=== PATIENT | male | born 1955 | race Caucasian/White ===

== ENCOUNTER 2024-10-20 07:10 | Day surgery (SDC) | payer OTHER ==
[2024-10-20] VITALS (10 sets, daily range): BP systolic 100–112; BP diastolic 52–66; PULSE 78–92; RESP 16–18; TEMP 97.3–97.8
[~2024-10-20] VITALS: Ht 177.8 cm; Wt 124.7 kg
[2024-10-20] MEDS ORDERED: METO-296 PO (08:15)
[2024-10-20] MEDS ORDERED: PRED5TAB PO (08:15)
[2024-10-20] MEDS ORDERED: ATOR10 PO (08:15)
[2024-10-20] MEDS ORDERED: HYDROCODONE-ACETAMIN PO (08:15)
[2024-10-20] MEDS ORDERED: ALPR0.5T8 PO (08:15)
[2024-10-20] MEDS ORDERED: SERT-440 PO (08:15)
[2024-10-20] MEDS ORDERED: PANT40TA54 PO (08:15)
[2024-10-20] MEDS ORDERED: HYDR200T75 PO (08:15)
[2024-10-20] MEDS ORDERED: LIDOCAINE HCL 1% 20 ML VIAL ONE (08:55)
[2024-10-20] MEDS ORDERED: 0.9%NACL 1000ML 1,000 ML IV ONE (09:39)
--- NOTE | 2024-10-20 10:52 | NUR ---
[facility] arrived at this time for pt.
== END 2024-10-20 10:55 | disposition home or self-care (01) ==
LOC: DAH 07:10
PROVIDERS: ATTEND Internal Medicine Gastroenterology
DX: R10.13 Epigastric pain (principal); K29.50 Unspecified chronic gastritis without bleeding; K26.3 Acute duodenal ulcer without hemorrhage or perforation; K21.00 Gastro-esophageal reflux disease with esophagitis, without bleeding; K21.9 Gastro-esophageal reflux disease without esophagitis; K22.89 Other specified disease of esophagus; Z79.899 Other long term (current) drug therapy; Z98.890 Other specified postprocedural states
CPT/HCPCS: 43239; J7030; J2704; A4620; A4215; A4223; A7002; A4222; A4221; A4663; A4606; J3490

== ENCOUNTER 2024-11-01 17:54 | Emergency (ER) | payer OTHER ==
[~2024-11-01] VITALS: Ht 177.8 cm; Wt 113.4 kg
[~2024-11-01 17:54] MED LIST: ALPR0.5T8 PO; ATOR10 PO; HYDR200T75 PO; HYDROCODONE-ACETAMIN PO; METO-296 PO; PANT40TA54 PO; PRED5TAB PO; SERT-440 PO
--- NOTE | 2024-11-01 18:21 | ERN ---
ED Note History of Present Illness Stated Complaint: EPIGASTRIC PAIN Chief Complaint: Abdominal Pain Time Seen by MD: 18:08 Time Seen by Midlevel: 18:09 Dictation: 69-year-old male who presents to the emergency department per EMS due to reported having epigastric pain that has been going off and on for the past week. 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 Patient states that the pain pretty much subsided but it worsens when he eats the incarceration food or takes his medications. The discomfort is described as being an achy type of sensation. However, he reports having some nausea and vomiting since last night. The patient states that he has had 3 episodes of vomiting since last night eyes. He denies having any fever or chills. Patient states that he also suffers for constipation with his last bowel movement being 4 days ago. Upon initial evaluation, the patient presents in no acute distress. 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 Home Meds Reported Medications Sertraline HCl (Sertraline HCl) 100 Mg Tablet, 1.5 TAB PO DAILY for 30 Days, #30 TAB 0 Refills 10/20/24 [Hydrocodone-Acetamin] No Conflict Check, 10-325 MG PO Q6HPRN 10/20/24 Prednisone (Prednisone) 5 Mg Tablet, 3 TAB PO DAILY for 30 Days, #30 TAB 0 Refills 10/20/24 Atorvastatin Calcium (LIPITOR) 10 Mg Tab, 1 TAB PO DAILY for 30 Days, #30 TAB 0 Refills 10/20/24 Alprazolam (Alprazolam) 0.5 Mg Tablet, 1 TAB PO HS for 30 Days, #60 TAB 0 Refills 10/20/24 Pantoprazole Sodium (Pantoprazole Sodium) 40 Mg Tablet.dr, 1 TAB PO BID for 30 Days, #30 TAB 0 Refills 10/20/24 Hydroxychloroquine Sulfate (Hydroxychloroquine Sulfate) 200 Mg Tablet, 1 TAB PO AM for 30 Days, #60 TAB 0 Refills 10/20/24 Metoclopramide HCl (Reglan) 10 Mg Tablet, 1 TAB PO QID for 30 Days, #120 TAB 0 Refills before food and bedtime 10/20/24 Past Medical History Past Medical History: Other Surgical History: Other RN Note Reviewed/Agreed w/PFSH: Yes Review of System Dictation Abdomen/GI: Epigastric pain, nausea, vomiting Initial Vital Sign VS Vital Signs Date Time Temp Pulse Resp B/P (MAP) Pulse Ox O2 Delivery O2 Flow Rate FiO2 11/01/24 17:57 98.8 98 20 152/87 97 Room Air 0 11/01/24 18:43 21 Physical Exam Dictation General: awake, alert, NAD Head/Face: Normocephalic, atraumatic Eyes: PERRL, EOMI ENT: Oral mucosa moist Neck: Trachea midline, supple Cardiovascular: RRR, no edema Respiratory: Symmetrical, non-labored Abdomen: Soft, epigastric tenderness with voluntary guarding, non-distended, no guarding. Skin: Warm, dry, good turgor, no rash MS/Extremity: Pulses equal, no cyanosis, neurovascular intact, FROM Neuro: COAx4, GCS 15, steady gait, Psych: Normal behavior, mood, and affect normal Results (Laboratory/Radiology) Laboratory/Radiology Laboratory Tests Test 11/01/24 18:34 11/01/24 20:50 White Blood Count 8.3 K/uL (4.8-10.8) Red Blood Count 4.01 MIL/uL (4.50-6.20) L Hemoglobin 11.7 g/dL (14.0-18.0) L Hematocrit 35.7 % (42-54) L Mean Corpuscular Volume 89.0 fL (79-99) Mean Corpuscular Hemoglobin 29.2 pg (27.0-33.0) Mean Corpuscular Hemoglobin Concent 32.8 g/dL (32.0-36.0) Red Cell Distribution Width 15.7 % (11.0-15.5) H Platelet Count 190 K/uL (130-400) Mean Platelet Volume 10.5 fL (7.5-10.5) Immature Granulocyte % (Auto) 0.4 % (0-1) Neutrophils (%) (Auto) 72.5 % (40.0-77.0) Lymphocytes (%) (Auto) 18.2 % (21.0-51.0) L Monocytes (%) (Auto) 6.7 % (3.0-13.0) Eosinophils (%) (Auto) 1.8 % (0.0-8.0) Basophils (%) (Auto) 0.4 % (0.0-5.0) Neutrophils # (Auto) 6.0 K/uL (1.8-7.7) Lymphocytes # (Auto) 1.5 K/uL (1.0-4.8) Monocytes # (Auto) 0.6 K/uL (0.1-1.0) Eosinophils # (Auto) 0.15 K/uL (0.00-0.70) Basophils # (Auto) 0.03 K/uL (0.00-0.20) Absolute Immature Granulocyte (auto 0.03 K/uL (0-1) Nucleated Red Blood Cells 0.0 % (0.0-0.19) Sodium Level 138 mmol/L (136-145) Potassium Level 5.3 mmol/L (3.5-5.1) H Chloride Level 103 mmol/L (101-111) Carbon Dioxide Level 28 mmol/L (21-32) Blood Urea Nitrogen 6 mg/dL (7-18) L Creatinine 0.7 mg/dL (0.5-1.3) Glomerular Filtration Rate Calc 100 mL/min (>90) Random Glucose 67 mg/dL (70-105) L Total Calcium 8.1 mg/dL (8.5-10.1) L Total Bilirubin 0.7 mg/dL (0.2-1.0) Aspartate Amino Transf (AST/SGOT) 45 U/L (10-37) H Alanine Aminotransferase (ALT/SGPT) 27 U/L (12-78) Alkaline Phosphatase 69 U/L (50-136) Troponin I High Sensitivity 28 ng/L (4-75) Total Protein 5.8 g/dL (6.0-8.3) L Albumin 2.0 g/dL (3.5-5.0) L Lipase 22 U/L (16-77) Urine Color YELLOW (YELLOW) Urine Appearance CLEAR (CLEAR) Urine pH 6.0 (5.0-8.0) Urine Specific [place] 1.018 (1.001-1.031) Urine Protein 20 mg/dL (NEGATIVE) H Urine Glucose (UA) NEGATIVE mg/dL (NEGATIVE) Urine Ketones 40 mg/dL (NEGATIVE) H Urine Occult Blood +- (TRACE) (NEGATIVE) H Urine Nitrate NEGATIVE (NEGATIVE) Urine Bilirubin NEGATIVE mg/dL (NEGATIVE) Urine Urobilinogen 0.2 mg/dL (0.2-1.0) Urine Leukocyte Esterase NEGATIVE John/uL Urine RBC 6-10 /HPF (0-1) H Urine WBC 2-5 /HPF (0-1) H Urine Squamous Epithelial Cells RARE /HPF (0-2) Urine Bacteria None /HPF (None Seen) Labs Reviewed?: Yes EKG: (+) NSR EKG Comment: EKG done 11/01/2024 at 6:16 p.m.. Ventricular rate 88 beats per minute MT 130 MS QRS 87 MS QT [address]I. CT Scan Comment: CT abdomen/pelvis with no particular findings. ED Course ED Course Orders Procedure Category Date Status Time Troponin I High LAB 11/01/24 Complete Sensitivity 18:14 Cbc With Differential LAB 11/01/24 Complete 18:14 Comprehensive LAB 11/01/24 Complete Metabolic Panel 18:14 Urinalysis Profile LAB 11/01/24 Complete 18:14 12 Lead Ekg Tracing- EKG 11/01/24 Logged Technical 18:14 Lipase LAB 11/01/24 Complete 18:14 Chest 1vw RAD 11/01/24 Resulted 18:14 Famotidine 20mg Vial PHA 11/01/24 Complete (Pepcid 20mg Vial) 18:30 Ondansetron 4mg Inj PHA 11/01/24 Complete (Zofran 4mg Inj) 18:30 Ct Abdomen/Pelvis CT 11/01/24 Resulted W/Contrast 18:28 Iohexol (Omnipaque) PHA 11/01/24 Complete 19:02 Lidocaine Hcl 2% PHA 11/01/24 Complete Viscous (Lidocaine Hcl 20:00 Mag/Alum/Simeth 30ml PHA 11/01/24 Complete (Maalox Plus 30ml) 20:00 Dicyclomine Hcl PHA 11/01/24 Complete (Bentyl 10mg/5ml 20:00 Current Medications Medications (Trade) Dose Ordered Sig/Nic Route PRN Reason Start Time Stop Time Status Last Admin Dose Admin Al Hydroxide/Mg Hydroxide (MAALox PLUS 30ML) 30 ml ONCE ONCE PO 11/01/24 20:00 11/01/24 20:01 DC Dicyclomine HCl (Bentyl 10mg/5ml Syrup) 10 mg ONCE ONCE PO 11/01/24 20:00 11/01/24 20:01 DC Famotidine (Pepcid 20mg Vial) 20 mg ONCE ONCE IV 11/01/24 18:30 11/01/24 18:31 DC 11/01/24 18:54 Iohexol (Omnipaque) 75 ml STK-MED ONCE IV 11/01/24 19:02 11/01/24 19:02 DC Lidocaine HCl (Lidocaine HCl 2% Viscous) 10 ml ONCE ONCE PO 11/01/24 20:00 11/01/24 20:01 DC Ondansetron HCl (zoFRAN 4MG INJ) 4 mg ONCE ONCE IVP 11/01/24 18:30 11/01/24 18:31 DC 11/01/24 18:54 Vital Signs Date Time Temp Pulse Resp B/P (MAP) Pulse Ox O2 Delivery O2 Flow Rate FiO2 11/01/24 20:06 98.2 82 18 103/61 96 Room Air* 0 21 11/01/24 18:43 92 16 114/37 96 Room Air* 0 21 11/01/24 17:57 98.8 98 20 152/87 97 Room Air 0 Medical Decision Making MDM MDM: Differential diagnosis: Epigastric pain, acute pancreatitis, gastritis, dyspepsia. Rationale: Tests considered and ordered secondary to shared decision making include: Previous outside records reviewed: Old ER visits. Risk of complication and/or morbidity or mortality of patient management: None Medications-Per medication reconciliation Need for hospitalization: Patient does not meet criteria for hospitalization. Need for emergency major/minor surgery: No There are no social concerns with this patient. Prescription drug management Prescriptions will include symptomatic care Patient's prior external medical records from other ER visits were reviewed by me as indicated. Prior testing and results from previous visits were reviewed. Prior tests were taken into account with medical decision making and resource utilization, independent historian/historians were used to obtain complete medical history. I independently interpreted the test that were performed, results were reviewed by me and considered findings on radiology if ordered. Medical management and examination interpretation discussions were had by me with other qualified healthcare professionals as indicated for the patient's care. DX & DISP Disposition: Discharge Decision to Admit Time: 21:19 Departure Impression: Primary Impression: Epigastric abdominal pain Additional Impression: History of gastritis Condition: Stable Referrals: BRIGHT ELLINGTON MD (PCP) Time of Disposition: 21:20 FAUSTINO SHEPPARD Nov 01, 2024 18:20
[2024-11-01 18:40] LABS: IMMATURE GRANULOCYTE ABSOLUTE 0.03 K/uL (0-1); NUCLEATED RED BLOOD CELLS 0.0 % (0.0-0.19); PLATELET COUNT (AUTO) 190 K/uL (130-400); RED BLOOD CELL COUNT(AUTO) 4.01 MIL/uL (4.50-6.20); RED CELL DISTRIBUTION WIDTH 15.7 % (11.0-15.5); WHITE BLOOD COUNT (AUTO) 8.3 K/uL (4.8-10.8)
[2024-11-01 18:52] LABS: CREATININE 0.7 mg/dL (0.5-1.3); GLOMERULAR FILTR. RATE CALC 100.0 mL/min (>90); GLUCOSE,RANDOM 67.0 mg/dL (70-105); SODIUM SERUM 138.0 mmol/L (136-145); UREA NITROGEN, BLOOD 6.0 mg/dL (7-18)
[2024-11-01] MEDS: FAMOTIDINE 20MG VIAL IV ONE (18:54)
[2024-11-01 18:56] LABS: ASPARTATE AMINOTRANSFERASE 45.0 U/L (10-37); TOTAL PROTEIN, SERUM 5.8 g/dL (6.0-8.3)
[2024-11-01] MEDS ORDERED: IOHEXOL-350 75 ML VIAL IV ONE (19:02)
--- NOTE | 2024-11-01 19:14 | HMCIMG ---
EXAM: CR Chest, 1 View. CLINICAL HISTORY: Pain COMPARISON: None provided. FINDINGS: LUNGS: There is no mass, infiltrate, or acute pulmonary abnormality. PLEURAL SPACES: No pleural effusion or pneumothorax. MEDIASTINUM: Cardiac size and mediastinal contours within normal limits. BONES: No aggressive appearing osseous lesion seen. IMPRESSION: No acute cardiopulmonary pathology is evident. /[place]
[2024-11-01] MEDS: LIDOCAINE HCL 2% VISCOUS 15 ML UDCUP PO ONE (20:06)
[2024-11-01] MEDS: MAG/ALUM/SIMETH 30 ML UDCUP PO ONE (20:06)
[2024-11-01] MEDS: DICYCLOMINE HCL 10 MG/5 ML ML PO ONE (20:06)
--- NOTE | 2024-11-01 20:42 | HMCIMG ---
EXAM: CT Abdomen and Pelvis with IV contrast CLINICAL HISTORY: Pain. TECHNIQUE: Postcontrast thin collimated axial CT images of the abdomen and pelvis were obtained, with sagittal and coronal reformatted images also submitted. A CT scan is done according to ALARA (As Low As Reasonably Achievable). COMPARISON: None. FINDINGS: Symmetrical dependent atelectasis in the bilateral posterior basal lungs. No focal abnormality within the liver, gallbladder, pancreas, spleen, or adrenals. Nonobstructive renal calculi bilaterally, the largest measures up to 0.6 cm in the right kidney. No ureteral calculus or hydronephrosis bilaterally. Unremarkable urinary bladder. Borderline prostate size. Punctate calcifications within the prostate. No obvious bowel wall thickening, dilatation, or obstruction. Unremarkable appendix. Uncomplicated colonic diverticula. Postsurgical changes and hernia repair mesh in the ventral wall around the umbilical to infraumbilical regions. Scattered calcific atherosclerotic disease in the abdominal aorta and its branches. No pathological lymphadenopathy in the abdomen or pelvis. No ascites or pneumoperitoneum. No acute bony abnormality is evident. Mild osteopenia. Degenerative osseous changes. Multilevel chronic compression fractures with post-vertebroplasty changes at L1 and L5. IMPRESSIONS: No acute process in the abdomen or pelvis. Nonobstructive renal calculi bilaterally. No ureteral calculus or hydronephrosis is evident. Uncomplicated colonic diverticula. Postsurgical changes and hernia repair mesh in the ventral wall around the umbilical to infraumbilical regions. /[place]
[2024-11-01 20:57] LABS: ADD UA MICROSCOPIC YES; APPEARANCE,URINE CLEAR (CLEAR); GLUCOSE, URINE (UA) NEGATIVE (NEGATIVE); LEUKOCYTE ESTERASE ,URINE NEGATIVE Leu/uL (NEGATIVE); NITRATE,URINE NEGATIVE (NEGATIVE); OCCULT BLOOD,URINE +- (TRACE) (NEGATIVE)
[2024-11-01 20:59] LABS: SQUAMOUS EPITHELIAL CELL,UR RARE /HPF (0-2)
--- NOTE | 2024-11-01 21:49 | NUR ---
DISPATCH CALLED AT THIS TIME
--- NOTE | 2024-11-01 22:43 | NUR ---
PER [facility] DISPATCH TRANSFER WORK RECIEVED; STILL PENDING TRANSFER
[2024-11-02 00:11] VITALS: BP 110/62; PULSE 78; RESP 18; TEMP 98; O2SAT 96
--- NOTE | 2024-11-02 00:12 | NUR ---
PATIENT LEAVING VIA EMS, IN NO DISTRESS AT THIS TIME
--- NOTE | 2024-11-02 06:50 | EKG ---
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
== END 2024-11-02 00:12 | disposition home or self-care (01) ==
LOC: EDH 17:54
DX: R10.13 Epigastric pain (principal); K29.70 Gastritis, unspecified, without bleeding; Z79.52 Long term (current) use of systemic steroids; Z79.899 Other long term (current) drug therapy; Z98.890 Other specified postprocedural states
CPT/HCPCS: 99285; 74177; 96374; 71045; 96375; 84484; 80053; 83690; 85025; 81001; 36415; 93005; J3490; J2405; Q9967